=== PATIENT | female | born 1935 | race Caucasian/White ===

== ENCOUNTER → 2017-06-24 | Outpatient (CLI) | payer MEDICARE ==
[~2017-06-24] MED LIST: ALPR.25; ALPR.25 PO; AMLO10 PO; AMLO5 PO; ANORO ELLIPTA1 EACH INH; ASPI81CH; ASPI81CH PO; ASPI81EC PO; ATELVIA PO; ATEN50 PO; Acyclovir800 MG PO; CALGLU500; CALPHO600 PO; CHOL10002 PO; CODACE30 PO; ESTR.75; ESTR.75 PO; ESTR2 PO; FERR325; HYDCHL12.5 PO; HYDCOR1TOA TOP; Hydrochloroth12.5 MG PO; IRON; LEVSOD75; LEVSOD75 PO; LIDO5TP TOP; LOSA50 PO; MULVITMINF; MULVITMINF PO; Norco 5-325 Ta1 EACH PO; OLME20; OLME20 PO; OLME40 PO; OMEP10ER PO; OMEP20ER PO; ONDA4ODT MM; POTA10T PO; POTCHL10ER; POTCHL20ER; PREG50 PO; PROM25 PO; Prilosec PO; QUIN325; RANI150 PO; RXDIPATR PO; RXPROM25 PO; SERT25 PO; SIMV10 PO; SIMV20; SIMV20 PO; SPIRIVA PO; TEMA15 PO; TEMA30; TEMA30 PO; TIOT18 IH; [UNRECOGNIZED DRUG - CODE] PO
== END ==
LOC: LAB SHORT 10:16 → LAB EV 10:16
DX: M54.2 Cervicalgia (principal)
CPT/HCPCS: 84481

== ENCOUNTER 2017-07-09 10:41 | Day surgery (SDC) | payer MEDICARE ==
[~2017-07-09] VITALS: Ht 162.6 cm; Wt 61.4 kg
[~2017-07-09 10:41] MED LIST changes: +DUOFER 28 MG TA28 MG PO; +METO25 PO; +Mobic15 MG PO
== END 2017-07-09 22:57 | disposition home or self-care (01) ==
LOC: MHTC 10:41
PROC: B246ZZ4 Ultrasonography of Right and Left Heart, Transesophageal (ICD-10-PCS; principal; 2017-07-09)
DX: Z86.73 Personal history of transient ischemic attack (TIA), and cerebral infarction without residual deficits (principal); Q21.1 Atrial septal defect; I70.0 Atherosclerosis of aorta; I10 Essential (primary) hypertension; Z87.891 Personal history of nicotine dependence; R51 Headache; E03.9 Hypothyroidism, unspecified; G47.33 Obstructive sleep apnea (adult) (pediatric); E78.5 Hyperlipidemia, unspecified; J44.9 Chronic obstructive pulmonary disease, unspecified
CPT/HCPCS: 93312; 93325; 99152; 99153; J7030

== ENCOUNTER → 2017-08-06 | Outpatient (CLI) | payer MEDICARE ==
[2017-08-06 15:17] LABS: BASOPHILS ABSOLUTE AUTO 0.11 K/mm3 (0.00-0.23); BASOPHILS PERCENT AUTO 1 % (0-2); EOSINOPHILS PERCENT AUTO 9 % (0-6); Hemoglobin 12.8 g/dL (11.5-16.0); IMMATURE GRAN ABSOLUTE AUTO 0.04 K/mm3 (0.00-0.10); IMMATURE GRAN PERCENT AUTO 0 % (0-1); LYMPHOCYTES ABSOLUTE AUTO 2.07 K/mm3 (0.84-5.20); LYMPHOCYTES PERCENT AUTO 21 % (21-46); MONOCYTES ABSOLUTE AUTO 0.66 K/mm3 (0.16-1.47); MONOCYTES PERCENT AUTO 7 % (4-13); Mean Corpuscular HGB 30.7 pg (26.0-34.0); Mean Corpuscular HGB Conc 35.6 g/dL (31.5-36.5); Mean Corpuscular Volume 86 fL (80-100); Mean Platelet Volume 9.7 fL (9.1-12.4); NEUTROPHILS ABSOLUTE AUTO 6.18 K/mm3 (1.96-9.15); NEUTROPHILS PERCENT AUTO 62 % (41-73); Platelet Count 284 K/mm3 (150-400); RDW Coefficient Variation 12.8 % (11.7-14.2); Red Blood Cell Count 4.17 M/mm3 (3.80-5.20); White Blood Cell Count 9.96 K/mm3 (4.00-11.30)
[2017-08-06 15:32] LABS: Alanine Aminotransfer (ALT/SGP 26 U/L (12-78); Albumin, Blood 3.4 g/dL (3.4-5.0); Albumin/Globulin Ratio 0.9 (0.8-1.8); Alk Phos 71 U/L (40-126); Anion Gap 8 mmol/L (6-16); Aspartate Aminotrans (AST/SGOT 26 U/L (12-37); Bilirubin, Total 0.5 mg/dL (0.1-1.0); Blood Urea Nitrogen 14 mg/dL (8-24); Bun/Creatinine Ratio 22.6 (12.0-20.0); CO2, Blood 30 mmol/L (21-32); Calcium, Blood 8.8 mg/dL (8.5-10.1); Chloride, Blood 98 mmol/L (98-108); Creatinine, Blood 0.62 mg/dL (0.40-1.00); Globulin, Blood 3.8 g/dL (2.2-4.0); Glomerular Filtration Rate >60 (60-); Glucose, Blood 126 mg/dL (70-99); Potassium, Blood 3.5 mmol/L (3.5-5.5); Sodium, Blood 136 mmol/L (136-145); Total Protein, Blood 7.2 g/dL (6.4-8.2)
[2017-08-06 15:33] LABS: Troponin I <0.017 ng/mL (0.000-0.040)
== END ==
LOC: LAB SHORT 15:13 → LAB EV 15:13
PROVIDERS: Physician Assistant
DX: R07.9 Chest pain, unspecified (principal)
CPT/HCPCS: 80053; 83690; 84484; 85025

== ENCOUNTER → 2017-10-13 | Outpatient (CLI) | payer MEDICARE ==
[~2017-10-13] MED LIST changes: +ATOR20 PO; +Advil200 M1 PO; +CRAMP; +DULO30 PO; +Dairy Relie9000 UNI1 PO; +FAMO20 PO; +Percocet 10-321 EACH PO
[2017-10-13 15:25] LABS: BASOPHILS ABSOLUTE AUTO 0.09 K/mm3 (0.00-0.23); BASOPHILS PERCENT AUTO 1 % (0-2); EOSINOPHILS ABSOLUTE AUTO 0.51 K/mm3 (0.00-0.68); EOSINOPHILS PERCENT AUTO 5 % (0-6); Hematocrit 36.6 % (33.0-51.0); Hemoglobin 13.1 g/dL (11.5-16.0); IMMATURE GRAN ABSOLUTE AUTO 0.06 K/mm3 (0.00-0.10); IMMATURE GRAN PERCENT AUTO 1 % (0-1); LYMPHOCYTES ABSOLUTE AUTO 2.38 K/mm3 (0.84-5.20); LYMPHOCYTES PERCENT AUTO 22 % (21-46); MONOCYTES ABSOLUTE AUTO 0.76 K/mm3 (0.16-1.47); MONOCYTES PERCENT AUTO 7 % (4-13); Mean Corpuscular HGB 30.6 pg (26.0-34.0); Mean Corpuscular HGB Conc 35.8 g/dL (31.5-36.5); Mean Corpuscular Volume 86 fL (80-100); Mean Platelet Volume 9.2 fL (9.1-12.4); NEUTROPHILS ABSOLUTE AUTO 7.25 K/mm3 (1.96-9.15); NEUTROPHILS PERCENT AUTO 66 % (41-73); Platelet Count 356 K/mm3 (150-400); RDW Coefficient Variation 12.5 % (11.7-14.2); RDW Standard Deviation 38.4 fL (35.1-46.3); Red Blood Cell Count 4.28 M/mm3 (3.80-5.20); White Blood Cell Count 11.05 K/mm3 (4.00-11.30)
[2017-10-13 15:38] LABS: Alanine Aminotransfer (ALT/SGP 25 U/L (12-78); Albumin, Blood 3.6 g/dL (3.4-5.0); Albumin/Globulin Ratio 0.9 (0.8-1.8); Alk Phos 77 U/L (40-126); Anion Gap 12 mmol/L (6-16); Aspartate Aminotrans (AST/SGOT 21 U/L (12-37); Bilirubin, Total 0.6 mg/dL (0.1-1.0); Blood Urea Nitrogen 14 mg/dL (8-24); Bun/Creatinine Ratio 15.7 (12.0-20.0); CO2, Blood 26 mmol/L (21-32); Calcium, Blood 9.3 mg/dL (8.5-10.1); Chloride, Blood 93 mmol/L (98-108); Creatinine, Blood 0.89 mg/dL (0.40-1.00); Globulin, Blood 3.8 g/dL (2.2-4.0); Glomerular Filtration Rate >60 (60-); Glucose, Blood 147 mg/dL (70-99); Potassium, Blood 3.4 mmol/L (3.5-5.5); Sodium, Blood 131 mmol/L (136-145); Total Protein, Blood 7.4 g/dL (6.4-8.2)
== END | disposition home or self-care (01) ==
LOC: LAB EV 15:21 → LAB SHORT 15:21
PROVIDERS: Physician Assistant
DX: R19.7 Diarrhea, unspecified (principal)
CPT/HCPCS: 80053; 83690; 85025

== ENCOUNTER → 2017-10-14 | Outpatient (CLI) | payer MEDICARE ==
[2017-10-14 09:44] LABS: Adenovirus F 40/41 Not Detected (NOT DETECT); Astrovirus Not Detected (NOT DETECT); Campylobacter Sp Not Detected (NOT DETECT); Cryptosporidium Not Detected (NOT DETECT); Cyclospora Cayetanensis Not Detected (NOT DETECT); E. Coli O157 Not Detected (NOT DETECT); Entamoeba Histolytica Not Detected (NOT DETECT); Enteroaggregative E. coli-EAEC Not Detected (NOT DETECT); Enteropathogenic E. coli-EPEC Not Detected (NOT DETECT); Enterotoxigenic E. coli-ETEC Not Detected (NOT DETECT); Giardia Lamblia Not Detected (NOT DETECT); Norovirus GI/GII Not Detected (NOT DETECT); Plesiomonas Shigelloides Not Detected (NOT DETECT); Rotavirus A Not Detected (NOT DETECT); Salmonella Sp Not Detected (NOT DETECT); Sapovirus Not Detected (NOT DETECT); Shiga Toxin-prod E. coli-STEC Not Detected (NOT DETECT); Shigella/Enteroin E. coli-EIEC Not Detected (NOT DETECT); Vibrio Cholerae Not Detected (NOT DETECT); Vibrio Sp Not Detected (NOT DETECT); Yersinia Enterocolitica Not Detected (NOT DETECT)
== END | disposition home or self-care (01) ==
LOC: LAB EV 09:41 → LAB SHORT 09:41
PROVIDERS: Physician Assistant
DX: R19.7 Diarrhea, unspecified (principal)
CPT/HCPCS: 87507

== ENCOUNTER 2018-03-13 09:36 | Day surgery (SDC) | payer MEDICARE ==
[~2018-03-13] VITALS: Ht 162.6 cm; Wt 61.4 kg
[~2018-03-13 09:36] MED LIST changes: +ASPI325EC PO; +DESV50 PO; +ESOM20 PO; +FERROUS FUMARAT89 MG PO; +LACTOSE PO; +LIDO700A20 TOP; +LIDOCAINE1 EACH TOP; +LIVALO2 MG PO; +LOSARTAN POTASS50 MG PO; +MELO7.5 PO; +Metoprolol Tart25 MG PO; +VITAMIN D22000 UNIT PO; +Xalatan2.5 ML LEFTEYE
== END 2018-03-13 11:57 | disposition home or self-care (01) ==
LOC: ORSCSDS 09:36
PROVIDERS: Internal Medicine Gastroenterology
PROC: 0DB68ZX Excision of Stomach, Via Natural or Artificial Opening Endoscopic, Diagnostic (ICD-10-PCS; principal; 2018-03-13 11:00)
DX: D50.9 Iron deficiency anemia, unspecified (principal); K26.9 Duodenal ulcer, unspecified as acute or chronic, without hemorrhage or perforation; K22.2 Esophageal obstruction; K92.1 Melena; E03.9 Hypothyroidism, unspecified; I10 Essential (primary) hypertension; Z86.73 Personal history of transient ischemic attack (TIA), and cerebral infarction without residual deficits; F41.9 Anxiety disorder, unspecified; E78.00 Pure hypercholesterolemia, unspecified; G47.33 Obstructive sleep apnea (adult) (pediatric); I25.10 Atherosclerotic heart disease of native coronary artery without angina pectoris; Z87.891 Personal history of nicotine dependence; Z79.82 Long term (current) use of aspirin; Z79.899 Other long term (current) drug therapy
CPT/HCPCS: 88305; 88342; J7120

== ENCOUNTER 2018-04-08 13:49 | Inpatient (IN) | payer MEDICARE ==
[~2018-04-08] VITALS: Ht 162.6 cm; Wt 137.5 kg
[~2018-04-08 13:49] MED LIST changes: -ALBU90OI6 INH; -CEFD300 PO; -FURO40 PO; -LACTASE FAS9000 UNIT PO
--- NOTE | 2018-04-08 14:45 | NUR ---
PT ADMIT DONE, HERE 1445, WALK IN. DENIES PAIN, A/O. SOME WEAKNESS. H/R IRREG, TELE ORDERED. NOT HERE YET. LUNGS CLEAR, RESP EASY UNLABORED. ON 2L 02. SATS >95. TALK WITH DR ALYSSA POLANCO REMOVE O2. SATS >94%. BT X4 LAST BM TODAY. VOIDS TO BATHROOM. 1 ASST, TO SBA. BED IN LOW POSITION,,CA LL LITE IN REACH. CALLS APPROP
[2018-04-08] MEDS ORDERED: ANORO ELLIPTA1 EACH INH (15:18)
[2018-04-08] MEDS ORDERED: DESV50 PO (15:19)
[2018-04-08 15:25] LABS: PCO2 Arterial 27.9 mmHg (35-45); PO2 Arterial 82.7 mmHg (80-100); pH Blood Arterial 7.46 (7.35-7.45)
--- NOTE | 2018-04-08 16:58 | NUR ---
PT ADMIT DONE. TELE PLACED. TEACHING ABOUT I/S. PT TO USE HOURLY. IV ABX STARRTED. NO OTHER CONCERNSAT THIS TIME. BED IN LOW POSITION,,CALL LITE IN REACH, CALLS APPROP
--- NOTE | 2018-04-08 18:22 | NUR ---
TELE MONITOR CALLED. RATE ACTUKALLY A-FIB WITH SOME SINUS BEATS. CALLED DR SHAH. PT NORM ON METOPROLOL 25 BID. NOT SHOWING ON EMAR. ORDERS MADE.
[2018-04-08 21:12] LABS: Bilirubin, Urine Neg (Neg); Blood, Urine Neg (Neg); Glucose Qualitative, Urine 1+ (Neg); Ketones, Urine 1+ (Neg); Leukocyte Esterase, Urine Neg (Neg); Nitrite, Urine Neg (Neg); Protein, Urine 3+ (Neg); Urobilinogen, Urine NORM (Normal)
[2018-04-08 21:18] LABS: Appearance, Urine Clear (Clear); Color, Urine Yellow (P-Yellow)
[2018-04-08 21:21] LABS: Bacteria Few /hpf; Red Blood Cells, Urine Not Seen /hpf (0-2); Squamous Epithelial Cells Mod /hpf (Few); White Blood Cells, Urine 0-2 /hpf (0-5)
[2018-04-08 21:41] LABS: Adenovirus Not Detected (NOT DETECT); Bordetella pertussis Not Detected (NOT DETECT); Chlamydophila pneumoniae Not Detected (NOT DETECT); Coronavirus 229E Not Detected (NOT DETECT); Coronavirus HKU1 Not Detected (NOT DETECT); Coronavirus NL63 Not Detected (NOT DETECT); Coronavirus OC43 Not Detected (NOT DETECT); Human Metapneumovirus Not Detected (NOT DETECT); Human Rhinovirus/Enterovirus Not Detected (NOT DETECT); Influenza A Not Detected (NOT DETECT); Influenza A/2009-H1 Not Detected (NOT DETECT); Influenza A/H1 Not Detected (NOT DETECT); Influenza A/H3 Not Detected (NOT DETECT); Influenza B Not Detected (NOT DETECT); Mycoplasma pneumoniae Not Detected (NOT DETECT); Parainfluenza Virus 1 Not Detected (NOT DETECT); Parainfluenza Virus 2 Not Detected (NOT DETECT); Parainfluenza Virus 3 Not Detected (NOT DETECT); Parainfluenza Virus 4 Not Detected (NOT DETECT); Respiratory Syncytial Virus Detected (NOT DETECT)
--- NOTE | 2018-04-08 21:42 | NUR ---
PT BACK IN NSR @ 2141 PER HADOOP INFRASTRUCTURE ARCHITECT. CURRENTLY RUNNING NORMAL SINUS @ 82 BPM c BBB AND PACs.
--- NOTE | 2018-04-08 23:14 | NUR ---
PT RSV POSITIVE PER RESP PANEL. PLACING IN DROPLET PRECAUTIONS AT THIS TIME.
[2018-04-09 03:54] LABS: PCO2 Arterial 30.4 mmHg (35-45); PO2 Arterial 72.6 mmHg (80-100); pH Blood Arterial 7.46 (7.35-7.45)
[2018-04-09 05:00] LABS: BASOPHILS ABSOLUTE AUTO 0.01 K/mm3 (0.00-0.23); BASOPHILS PERCENT AUTO 0 % (0-2); EOSINOPHILS PERCENT AUTO 0 % (0-6); Hematocrit 24.3 % (33.0-51.0); Hemoglobin 7.7 g/dL (11.5-16.0); IMMATURE GRAN ABSOLUTE AUTO 0.09 K/mm3 (0.00-0.10); IMMATURE GRAN PERCENT AUTO 1 % (0-1); LYMPHOCYTES ABSOLUTE AUTO 0.81 K/mm3 (0.84-5.20); LYMPHOCYTES PERCENT AUTO 6 % (21-46); MONOCYTES ABSOLUTE AUTO 0.37 K/mm3 (0.16-1.47); MONOCYTES PERCENT AUTO 3 % (4-13); Mean Corpuscular HGB 29.4 pg (26.0-34.0); Mean Corpuscular HGB Conc 31.7 g/dL (31.5-36.5); Mean Platelet Volume 10.1 fL (9.1-12.4); NEUTROPHILS ABSOLUTE AUTO 12.71 K/mm3 (1.96-9.15); NEUTROPHILS PERCENT AUTO 91 % (41-73); Platelet Count 275 K/mm3 (150-400); RDW Coefficient Variation 17.6 % (11.7-14.2); RDW Standard Deviation 60.3 fL (35.1-46.3); Red Blood Cell Count 2.62 M/mm3 (3.80-5.20); White Blood Cell Count 13.99 K/mm3 (4.00-11.30)
[2018-04-09 05:01] LABS: Mean Corpuscular Volume 93 fL (80-100)
[2018-04-09 05:32] LABS: Troponin I <0.015 ng/mL (0.000-0.040)
[2018-04-09 05:44] LABS: Alanine Aminotransfer (ALT/SGP 20 U/L (12-78); Albumin, Blood 2.6 g/dL (3.4-5.0); Albumin/Globulin Ratio 0.8 (0.8-1.8); Alk Phos 80 U/L (50-136); Anion Gap 11 mmol/L (6-16); Aspartate Aminotrans (AST/SGOT 17 U/L (12-37); Bilirubin, Total 0.2 mg/dL (0.1-1.0); Blood Urea Nitrogen 24 mg/dL (8-24); Bun/Creatinine Ratio 24.3 (12.0-20.0); CO2, Blood 22 mmol/L (21-32); Chloride, Blood 95 mmol/L (98-108); Creatinine, Blood 0.99 mg/dL (0.40-1.00); Globulin, Blood 3.3 g/dL (2.2-4.0); Glomerular Filtration Rate 57 (60-); Glucose, Blood 178 mg/dL (70-99); Potassium, Blood 3.9 mmol/L (3.5-5.5); Sodium, Blood 128 mmol/L (136-145); Total Protein, Blood 5.9 g/dL (6.4-8.2)
--- NOTE | 2018-04-09 06:00 | NUR ---
SHIFT SUMMARY: PERFORMED RESP PANEL THIS SHIFT; RSV DETECTED; DROPLET PRECAUTIONS INITIATED. PT TOLERATING ROOM AIR, RESP E/U. CPAP @ NIGHT. PT A&O X 4, INDEPENDENT IN RM. PRN RESTORIL ADMINISTERED FOR INSOMNIA. PT BACK INTO NSR @ 82 BPM c BBB AND PACs PER CARCASS SPLITTER. ACCORDING TO DAYSHIFT RN, PT WAS IN A FIB WHICH IS ABNORMAL. NA+ AT 128 THIS AM, HGB AT 7.7, HCT AT 24.3. PT DENIES SOB, DENIES PAIN. CALL LIGHT APPROP & ABLE TO MAKE NEEDS KNOWN. WILL CONT TO MONITOR AND PROVIDE CARE UNTIL PRESUMED BY ONCOMING RN.
--- NOTE | 2018-04-09 07:50 | NUR ---
PT AWAKE. SITTING UP IN BED. TALKATIVE, JOKING. DENIES PAIN. A/O. NOT IN ROOM AT THIS TIME. H/R IRREG, NO MURMER NOTED. PER TELE AFIB RATE 70'S, BBB. LUNGS ARE CLEAR T/O. RESP EASY, UNLABORED. ON R/A. ABLE TO SPEAK 5-6 WORD SENTENCES WITH EASE. ABD SOFT NON TENDER, BT X4. LAST BM PER PT YEST. VOIDS PER BATHROOM. CONTINENT. SBA. NO OTHER CONCERNS AT THIS TIME. BED IN LOW POSITION, CALL LITE IN REACH, CALLS APROP
[2018-04-09 10:32] LABS: Percent Saturation 13.3 % (15.0-50.0)
--- NOTE | 2018-04-09 11:57 | NUR ---
Patient was lying in bed and alert when I looked in the patient's room. I introduced myself and asked if patient would like a visit from the spiritual care department. Patient affirmed that she would and after putting on the appropriate PPE I entered the room. Patient shared easily about her recent medical history, her family history and her jeffy. Patient showed no signs of spiritual/emotional needs. I listened empathically, reinforced helpful attitudes and practices, explored patient's belief system and provided prayer. Patient responded warmly and expressed gratitude for my visit.
--- NOTE | 2018-04-09 18:07 | NUR ---
pt pleasant today. ed in also quite pleasant. pt requested pain patch to rt shoulder. done. pt independant in room to sba. no other concerns. pt working on i/s hourly. states is coughing less. pending guiac. hat in stool. no other concerna at this time. bed in low position,call lenine lucian, calls approp
--- NOTE | 2018-04-10 04:15 | NUR ---
SHIFT SUMMARY NO ACUTE CHANGES THIS SHIFT. PT HAS DENIED NEEDS T/O SHIFT. TELE IN PLACE WITH AFIB RHYTHM. PT REPORTS ARTHRITIC PAIN IN HER RIGHT SHOULDER BUT DECLINES ANYTHING FOR PAIN. VITALS STABLE. PT ANTICIPAITING DC TODAY. NO ACUTE CHANGES. WILL CONTINUE TO MONITOR AND REPORT TO ONCOMING RN.
[2018-04-10 05:21] LABS: BASOPHILS ABSOLUTE AUTO 0.01 K/mm3 (0.00-0.23); BASOPHILS PERCENT AUTO 0 % (0-2); EOSINOPHILS ABSOLUTE AUTO 0.01 K/mm3 (0.00-0.68); EOSINOPHILS PERCENT AUTO 0 % (0-6); Hematocrit 23.7 % (33.0-51.0); Hemoglobin 7.5 g/dL (11.5-16.0); IMMATURE GRAN PERCENT AUTO 1 % (0-1); LYMPHOCYTES ABSOLUTE AUTO 1.26 K/mm3 (0.84-5.20); LYMPHOCYTES PERCENT AUTO 7 % (21-46); MONOCYTES PERCENT AUTO 8 % (4-13); Mean Corpuscular HGB Conc 31.6 g/dL (31.5-36.5); Mean Corpuscular Volume 92 fL (80-100); Mean Platelet Volume 10.3 fL (9.1-12.4); NEUTROPHILS ABSOLUTE AUTO 14.57 K/mm3 (1.96-9.15); NEUTROPHILS PERCENT AUTO 84 % (41-73); Platelet Count 322 K/mm3 (150-400); RDW Coefficient Variation 18.4 % (11.7-14.2); RDW Standard Deviation 60.9 fL (35.1-46.3); Red Blood Cell Count 2.59 M/mm3 (3.80-5.20); White Blood Cell Count 17.35 K/mm3 (4.00-11.30)
[2018-04-10 05:39] LABS: Creatinine, Blood 0.97 mg/dL (0.40-1.00); Potassium, Blood 4.3 mmol/L (3.5-5.5)
[2018-04-10 13:39] LABS: Stool Occult Blood Guaiac 1 Pos (Neg)
--- NOTE | 2018-04-10 19:28 | NUR ---
SHIFT SUMMARY PT AXO, PLEASANT AND COOPERATIVE WITH CARE. PT RECIEVED 1 UNIT PRBC. IV PATENT, SALINE LOCKED. PT A-FIB WITH BBB FROM 80'S TO 110. PT WAS UP TO 150 PER MOBILE PHONE SALESPERSON AT ABOUT 1830. THEN HR DROPPED BACK DOWN TO 108. GI CONSULTED, SEE NOTE. PT UP AD RIVERA WITH STEADY GAIT. BED IN LOW POSITION, CALL LIGHT WITHIN REACH.
[2018-04-11 05:17] LABS: BASOPHILS ABSOLUTE AUTO 0.03 K/mm3 (0.00-0.23); BASOPHILS PERCENT AUTO 0 % (0-2); EOSINOPHILS ABSOLUTE AUTO 0.02 K/mm3 (0.00-0.68); EOSINOPHILS PERCENT AUTO 0 % (0-6); Hematocrit 31.3 % (33.0-51.0); Hemoglobin 9.9 g/dL (11.5-16.0); IMMATURE GRAN ABSOLUTE AUTO 0.37 K/mm3 (0.00-0.10); IMMATURE GRAN PERCENT AUTO 2 % (0-1); LYMPHOCYTES ABSOLUTE AUTO 1.59 K/mm3 (0.84-5.20); LYMPHOCYTES PERCENT AUTO 8 % (21-46); MONOCYTES PERCENT AUTO 8 % (4-13); Mean Corpuscular HGB 28.3 pg (26.0-34.0); Mean Corpuscular HGB Conc 31.6 g/dL (31.5-36.5); Mean Platelet Volume 10.6 fL (9.1-12.4); NEUTROPHILS ABSOLUTE AUTO 17.66 K/mm3 (1.96-9.15); NEUTROPHILS PERCENT AUTO 83 % (41-73); NRBC ABSOLUTE 0.04 K/mm3 (0.00-0.02); NRBC Auto 0.2 /100 WBC (0.0-0.2); Platelet Count 385 K/mm3 (150-400); RDW Coefficient Variation 18.2 % (11.7-14.2); RDW Standard Deviation 59.2 fL (35.1-46.3); White Blood Cell Count 21.27 K/mm3 (4.00-11.30)
[2018-04-11 05:29] LABS: Mean Corpuscular Volume 89 fL (80-100)
[2018-04-11 06:06] LABS: Anion Gap 10 mmol/L (6-16); Blood Urea Nitrogen 30 mg/dL (8-24); Bun/Creatinine Ratio 34.3 (12.0-20.0); CO2, Blood 24 mmol/L (21-32); Calcium, Blood 8.6 mg/dL (8.5-10.1); Chloride, Blood 94 mmol/L (98-108); Creatinine, Blood 0.87 mg/dL (0.40-1.00); Glomerular Filtration Rate >60 (60-); Glucose, Blood 127 mg/dL (70-99); Potassium, Blood 4.4 mmol/L (3.5-5.5); Sodium, Blood 128 mmol/L (136-145)
--- NOTE | 2018-04-11 06:21 | NUR ---
PT IS A/O x 4, VALDOVIONS, SOB, 1 PA TO BR, 20G L UA, IVABX, ON ISO FOR RSV. PT HAD ONE EPISODE OF PANIC ATTACK EARLY IN THIS SHIFT. MD WAS CALLED TO GET AN ORDER FOR ATIVAN TO HELP HER TO CALM DOWN. PT SLEPT WELL UNTIL ABOUT 0530. THEN SHE AWOKE C/O SOB. PT'S 02 WAS AROUND THE MID 80'S%. HOB ELEVATED, AND PT WAS GUIDED TO BREATHE SLOWLY THRU HER NOSE. THIS CALMED HER FOR ABOUT 30 MIN. THEN SHE STARTED SCREAMING FOR HELP. PT'S 02 SATS WERE IN LOW 80'S AND SHE WAS WORKING VERY HARD TO BREATHE. RT WAS CALLED BUT HE COULD NOT GET THERE IMMEDIATELY. PT WAS MOVED OFF OF HER CPAP MACHINE AND ONTO NC AT 6L - 7L. SHE INTO AFIB W/RVR, AND HER SATS WERE DROPPING TO THE 70'S. THE CHARGE NURSE WAS CONSULTED AND A RAPD WAS CALLED. PT'S 02 WAS ELEVATED TO 10L NC UNTIL A HOUSE CPAP COULD BE BROUGHT TO HER. THE HOSPITALIST WAS CALLED FOR AN ORDER FOR LASIX, AND ATIVAN TO CALM HER DOWN. PT CONTINUES TO BE CYANOTIC AND SOB BUT DOING BETTER NOW.
--- NOTE | 2018-04-11 10:30 | NUR ---
PT SINUS RHYTHM. PT NOTE IN SINUS RHYTHM AT 92 WITH OCCATIONAL PACS PER FILIBERTO COLIN. WILL CONTINUE TO MONITOR.
--- NOTE | 2018-04-11 10:33 | NUR ---
PT ON 3L O3 PT TITRATED DOWN TO 3L O2 VIA OXIMIZER. SATING IN THE MID 90S. WILL CONTINUE TO MONITOR.
--- NOTE | 2018-04-11 15:43 | NUR ---
AFIB & OXYGEN. PT CONVERTED BACK TO AFIB RATE IN THE 100S PER FILIBERTO COLIN. PT ALSO ON 1L O2. PT DESATES TO 87-89 WITHOUT O2. WILL CONTINUE TO MONITOR.
--- NOTE | 2018-04-11 16:59 | NUR ---
SHIFT SUMMARY PT ON 1L O2 VIA NC AT THIS TIME. PT TOLERATED RA WHEN AWAKE, BUT DESATS WHEN FALLING ASLEEP. PT INSTRUCTED ON USING HER INSENTIVE SPIROMETER Q2H. PT ENCOURAGED TO GET OUT OF BED AND INTO CHIAR. PT STATED SHE WAS NOT UP TO THE TASK, BUT STATED SHE WOULD TOMORROW. NO OTHER CHANGES IN ASSESSMENT AT THIS TIME. WILL CONTINUE TO MONITOR UNTIL TURNOVER IS COMPLETE.
--- NOTE | 2018-04-11 19:46 | NUR ---
TELE MONITOR ISRRAEL CALLED TO REPORT PT'S HR WENT UP INTO THE 150'S. PT UP SITTING IN BED VISITING WITH . REPORTED THIS TO TELE MONITOR. MONITOR STATES HR NOW IN THE 120'S.
--- NOTE | 2018-04-12 04:14 | NUR ---
NOC SHIFT SUMMARY PT HAS BEEN PLEASANT AND COOPERATIVE WITH CARE THIS NIGHT. SHE HAS BEEN AAOX4 RESP HAVE BEEN EVEN AND UNLABORED. SHE HAS BEEN COUGHING ON AND OFF. I HAVE NOT SEEN ANY SPUTUM PRODUCED. HER VS HAVE BEEN STABLE WITH THE EXCEPTION OF HER O2 SATS DROPPING INTO THE MID 80'S WHEN SLEEPING. SHE IS WEARING HER CPAP WHEN THIS OCCURS. 1L VIA NC IN HER MOUTH SO SHE CAN CONTINUE CPAP IMPROVES SATS TO MID 90'S. PRESSENTLY APPEARS IN NO ACUTE DISTRESS. WILL CONTINUE TO MONITOR.
[2018-04-12 05:21] LABS: BASOPHILS ABSOLUTE AUTO 0.01 K/mm3 (0.00-0.23); BASOPHILS PERCENT AUTO 0 % (0-2); EOSINOPHILS ABSOLUTE AUTO 0.05 K/mm3 (0.00-0.68); EOSINOPHILS PERCENT AUTO 0 % (0-6); Hematocrit 27.9 % (33.0-51.0); IMMATURE GRAN ABSOLUTE AUTO 0.39 K/mm3 (0.00-0.10); IMMATURE GRAN PERCENT AUTO 3 % (0-1); LYMPHOCYTES ABSOLUTE AUTO 1.46 K/mm3 (0.84-5.20); LYMPHOCYTES PERCENT AUTO 10 % (21-46); MONOCYTES ABSOLUTE AUTO 1.35 K/mm3 (0.16-1.47); MONOCYTES PERCENT AUTO 10 % (4-13); Mean Corpuscular HGB 28.8 pg (26.0-34.0); Mean Corpuscular HGB Conc 32.3 g/dL (31.5-36.5); Mean Corpuscular Volume 89 fL (80-100); Mean Platelet Volume 10.5 fL (9.1-12.4); NEUTROPHILS ABSOLUTE AUTO 10.95 K/mm3 (1.96-9.15); NEUTROPHILS PERCENT AUTO 77 % (41-73); NRBC ABSOLUTE 0.02 K/mm3 (0.00-0.02); NRBC Auto 0.1 /100 WBC (0.0-0.2); Platelet Count 361 K/mm3 (150-400); RDW Coefficient Variation 18.5 % (11.7-14.2); RDW Standard Deviation 60.7 fL (35.1-46.3); Red Blood Cell Count 3.12 M/mm3 (3.80-5.20); White Blood Cell Count 14.21 K/mm3 (4.00-11.30)
[2018-04-12 05:55] LABS: Anion Gap 9 mmol/L (6-16); Blood Urea Nitrogen 23 mg/dL (8-24); Bun/Creatinine Ratio 32.8 (12.0-20.0); CO2, Blood 28 mmol/L (21-32); Calcium, Blood 8.4 mg/dL (8.5-10.1); Chloride, Blood 96 mmol/L (98-108); Glomerular Filtration Rate >60 (60-); Glucose, Blood 114 mg/dL (70-99); Potassium, Blood 3.8 mmol/L (3.5-5.5); Sodium, Blood 133 mmol/L (136-145)
[2018-04-12] MEDS ORDERED: LACTASE FAS9000 UNIT PO (13:44)
[2018-04-12] MEDS ORDERED: ALBU90OI6 INH (13:45)
[2018-04-12] MEDS ORDERED: CEFD300 PO (13:45)
[2018-04-12] MEDS ORDERED: FURO40 PO (13:45)
[2018-04-12] MEDS ORDERED: POTA10T PO (13:46)
--- NOTE | 2018-04-12 15:40 | NUR ---
DISCHARGE SUMMARY PATIENT INFORMATION GIVEN TO THE PATIENT AND TO THE FAMILY. ALL MEDICATIONS SPOKEN THROUGH WITH THE PATIENT. NO ACUTE CONCERNS AT THIS TIME. SHE HAS VERBALIZED UNDERSTANDING OF TEACHINGS AND INFORMATION REGARDING FOLLOW UP. IV REMOVED AND PATIENT HAS BEEN WHEELED OUT.
== END 2018-04-12 15:39 | disposition home or self-care (01) | DRG 291 ==
LOC: MEDS 13:49
PROVIDERS: ADMIT Internal Medicine
PROC: 30233N1 Transfusion of Nonautologous Red Blood Cells into Peripheral Vein, Percutaneous Approach (ICD-10-PCS; principal; 2018-04-09)
DX: I11.0 Hypertensive heart disease with heart failure (principal); J18.1 Lobar pneumonia, unspecified organism; I50.31 Acute diastolic (congestive) heart failure; J96.01 Acute respiratory failure with hypoxia; E87.1 Hypo-osmolality and hyponatremia; D62 Acute posthemorrhagic anemia; J44.1 Chronic obstructive pulmonary disease with (acute) exacerbation; J44.0 Chronic obstructive pulmonary disease with (acute) lower respiratory infection; B97.4 Respiratory syncytial virus as the cause of diseases classified elsewhere; I27.20 Pulmonary hypertension, unspecified; I48.2 Chronic atrial fibrillation; G47.33 Obstructive sleep apnea (adult) (pediatric); R19.5 Other fecal abnormalities; K21.9 Gastro-esophageal reflux disease without esophagitis; E03.9 Hypothyroidism, unspecified; F41.8 Other specified anxiety disorders; Z86.73 Personal history of transient ischemic attack (TIA), and cerebral infarction without residual deficits; I44.7 Left bundle-branch block, unspecified; Z66 Do not resuscitate; D50.9 Iron deficiency anemia, unspecified; Z87.891 Personal history of nicotine dependence; T50.2X5A Adverse effect of carbonic-anhydrase inhibitors, benzothiadiazides and other diuretics, initial encounter; D63.8 Anemia in other chronic diseases classified elsewhere; E78.5 Hyperlipidemia, unspecified; M81.0 Age-related osteoporosis without current pathological fracture
CPT/HCPCS: 36415; 36430; 36600; 71046; 80048; 80053; 81001; 82272; 82607; 82728; 82746; 82803; 83540; 83550; 83880; 84484; 85025; 86850; 86900; 86901; 86923; 87040; 87486; 87581; 87633; 87798; 93005; 93010; 93306; 94640; 94660; 94760; 94761; J0456; J0696; J1650; J1940; J7050; P9016

== ENCOUNTER → 2018-04-08 | Outpatient (CLI) | payer MEDICARE ==
[~2018-04-08] MED LIST changes: +ALBU90OI6 INH; +CEFD300 PO; +FURO40 PO; +LACTASE FAS9000 UNIT PO
[2018-04-08 10:31] LABS: BASOPHILS ABSOLUTE AUTO 0.05 K/mm3 (0.00-0.23); BASOPHILS PERCENT AUTO 0 % (0-2); EOSINOPHILS ABSOLUTE AUTO 0.09 K/mm3 (0.00-0.68); EOSINOPHILS PERCENT AUTO 1 % (0-6); Hematocrit 25.7 % (33.0-51.0); Hemoglobin 8.5 g/dL (11.5-16.0); IMMATURE GRAN PERCENT AUTO 1 % (0-1); LYMPHOCYTES ABSOLUTE AUTO 0.91 K/mm3 (0.84-5.20); LYMPHOCYTES PERCENT AUTO 6 % (21-46); MONOCYTES PERCENT AUTO 7 % (4-13); Mean Corpuscular HGB 29.7 pg (26.0-34.0); Mean Corpuscular HGB Conc 33.1 g/dL (31.5-36.5); Mean Corpuscular Volume 90 fL (80-100); Mean Platelet Volume 10.4 fL (9.1-12.4); NEUTROPHILS ABSOLUTE AUTO 12.78 K/mm3 (1.96-9.15); NEUTROPHILS PERCENT AUTO 86 % (41-73); Platelet Count 331 K/mm3 (150-400); RDW Standard Deviation 59.7 fL (35.1-46.3); Red Blood Cell Count 2.86 M/mm3 (3.80-5.20); White Blood Cell Count 14.93 K/mm3 (4.00-11.30)
[2018-04-08 10:43] LABS: Alanine Aminotransfer (ALT/SGP 19 U/L (12-78); Albumin, Blood 2.9 g/dL (3.4-5.0); Albumin/Globulin Ratio 0.8 (0.8-1.8); Alk Phos 93 U/L (40-126); Anion Gap 11 mmol/L (6-16); Aspartate Aminotrans (AST/SGOT 17 U/L (12-37); Bilirubin, Total 0.4 mg/dL (0.1-1.0); Blood Urea Nitrogen 11 mg/dL (8-24); Bun/Creatinine Ratio 14.7 (12.0-20.0); CO2, Blood 23 mmol/L (21-32); Calcium, Blood 8.1 mg/dL (8.5-10.1); Chloride, Blood 91 mmol/L (98-108); Creatinine, Blood 0.75 mg/dL (0.40-1.00); Globulin, Blood 3.5 g/dL (2.2-4.0); Glomerular Filtration Rate >60 (60-); Glucose, Blood 140 mg/dL (70-99); Sodium, Blood 125 mmol/L (136-145); Total Protein, Blood 6.4 g/dL (6.4-8.2)
== END ==
LOC: LAB SHORT 10:27 → LAB EV 10:27
PROVIDERS: Emergency Medicine
DX: J06.9 Acute upper respiratory infection, unspecified (principal)
CPT/HCPCS: 80053; 85025; 87040

== ENCOUNTER 2019-08-06 00:11 | Inpatient (IN) | payer MEDICARE ==
[~2019-08-06] VITALS: Ht 162.6 cm; Wt 56.5 kg
[~2019-08-06 00:11] MED LIST changes: +ALBU90OI6 INH; +ANORO ELLIPTA1 EAC1 INH; +CEFD300 PO; +FURO40 PO; +LACTASE FAS9000 UNI1 PO; +VITAMIN D-32000 UNIT PO; -VITAMIN D22000 UNIT PO
[2019-08-06 00:26] LABS: BASOPHILS ABSOLUTE AUTO 0.06 K/mm3 (0.00-0.23); BASOPHILS PERCENT AUTO 1 % (0-2); EOSINOPHILS ABSOLUTE AUTO 0.06 K/mm3 (0.00-0.68); EOSINOPHILS PERCENT AUTO 1 % (0-6); Hematocrit 45.9 % (33.0-51.0); Hemoglobin 14.4 g/dL (11.5-16.0); IMMATURE GRAN ABSOLUTE AUTO 0.09 K/mm3 (0.00-0.10); IMMATURE GRAN PERCENT AUTO 1 % (0-1); LYMPHOCYTES ABSOLUTE AUTO 0.71 K/mm3 (0.84-5.20); LYMPHOCYTES PERCENT AUTO 6 % (21-46); MONOCYTES ABSOLUTE AUTO 0.72 K/mm3 (0.16-1.47); MONOCYTES PERCENT AUTO 6 % (4-13); Mean Corpuscular HGB 26.9 pg (26.0-34.0); Mean Corpuscular HGB Conc 31.4 g/dL (31.5-36.5); Mean Corpuscular Volume 86 fL (80-100); Mean Platelet Volume 11.3 fL (9.1-12.4); NEUTROPHILS ABSOLUTE AUTO 10.78 K/mm3 (1.96-9.15); NEUTROPHILS PERCENT AUTO 87 % (41-73); Platelet Count 274 K/mm3 (150-400); RDW Coefficient Variation 15.6 % (11.7-14.2); RDW Standard Deviation 48.2 fL (35.1-46.3); Red Blood Cell Count 5.35 M/mm3 (3.80-5.20); White Blood Cell Count 12.42 K/mm3 (4.00-11.30)
[2019-08-06 00:28] LABS: Base Excess Venous -2.8 mmol/L; Bicarbonate Venous 22.2 mmol/L (24.0-30.0); PCO2 Venous 40.3 mmHg (38-42); PO2 Venous 108 mmHg (38-42); pH Blood Venous 7.36 (7.34-7.37)
[2019-08-06 00:46] LABS: Alanine Aminotransfer (ALT/SGP 28 U/L (12-78); Albumin, Blood 3.6 g/dL (3.4-5.0); Alk Phos 107 U/L (50-136); Anion Gap 9 mmol/L (6-16); Aspartate Aminotrans (AST/SGOT 28 U/L (12-37); Bilirubin, Total 1.3 mg/dL (0.1-1.0); Blood Urea Nitrogen 23 mg/dL (8-24); Bun/Creatinine Ratio 27.7 (12.0-20.0); CO2, Blood 23 mmol/L (21-32); Calcium, Blood 8.6 mg/dL (8.5-10.1); Chloride, Blood 103 mmol/L (98-108); Creatinine, Blood 0.83 mg/dL (0.40-1.00); Globulin, Blood 3.6 g/dL (2.2-4.0); Glomerular Filtration Rate >60 (60-); Glucose, Blood 158 mg/dL (70-99); Potassium, Blood 4.5 mmol/L (3.5-5.5); Sodium, Blood 135 mmol/L (136-145); Total Protein, Blood 7.2 g/dL (6.4-8.2); Troponin I <0.015 ng/mL (0.000-0.040)
--- NOTE | 2019-08-06 02:40 | NUR ---
PATIENT ARRIVED TO ICU VIA GURNEY FROM ED WITH DX OF COPD. PATIENT TRANSFER TO BSC, THEN TO BED AND PLACED ON ICU MONITORS. PATIENT IS PCU STATUS. SOB AND SLIGHTLY DIZZY WITH ACTIVITY. BIPAP PLACED SET 12/6 WITH FIO2 45% AFTER ORAL CARE AND SIP OF WATER. PATIENT VERBALIZED THAT SHE JUST WANTS TO SLEEP. BP TO BE OBTAINED ONLY ON RIGHT ARM.
--- NOTE | 2019-08-06 06:11 | NUR ---
SUMMARY PATIENT SLEEPING WITH BIPAP IN PLACE SET AT 12/6 FIO2 45%. USING CALL LIGHT WITHOUT DIFFICULTY. PATIENT UP TO BSC WITH BIPAP IN PLACE TO VOID. PATIENT APPEARS TO BE LESS SOB THIS MORNING.
[2019-08-06 08:40] LABS: BASOPHILS ABSOLUTE AUTO 0.03 K/mm3 (0.00-0.23); BASOPHILS PERCENT AUTO 0 % (0-2); EOSINOPHILS ABSOLUTE AUTO 0.06 K/mm3 (0.00-0.68); EOSINOPHILS PERCENT AUTO 1 % (0-6); Hematocrit 41.7 % (33.0-51.0); Hemoglobin 13.4 g/dL (11.5-16.0); IMMATURE GRAN ABSOLUTE AUTO 0.02 K/mm3 (0.00-0.10); IMMATURE GRAN PERCENT AUTO 0 % (0-1); LYMPHOCYTES ABSOLUTE AUTO 0.76 K/mm3 (0.84-5.20); LYMPHOCYTES PERCENT AUTO 8 % (21-46); MONOCYTES ABSOLUTE AUTO 0.72 K/mm3 (0.16-1.47); MONOCYTES PERCENT AUTO 8 % (4-13); Mean Corpuscular HGB 27.3 pg (26.0-34.0); Mean Corpuscular HGB Conc 32.1 g/dL (31.5-36.5); Mean Corpuscular Volume 85 fL (80-100); Mean Platelet Volume 11.7 fL (9.1-12.4); NEUTROPHILS ABSOLUTE AUTO 7.56 K/mm3 (1.96-9.15); NEUTROPHILS PERCENT AUTO 83 % (41-73); Platelet Count 217 K/mm3 (150-400); RDW Coefficient Variation 15.5 % (11.7-14.2); RDW Standard Deviation 47.6 fL (35.1-46.3); White Blood Cell Count 9.15 K/mm3 (4.00-11.30)
[2019-08-06 09:16] LABS: Alanine Aminotransfer (ALT/SGP 24 U/L (12-78); Albumin, Blood 3.4 g/dL (3.4-5.0); Albumin/Globulin Ratio 1.1 (0.8-1.8); Alk Phos 94 U/L (50-136); Anion Gap 7 mmol/L (6-16); Aspartate Aminotrans (AST/SGOT 23 U/L (12-37); Bilirubin, Total 1.3 mg/dL (0.1-1.0); Blood Urea Nitrogen 20 mg/dL (8-24); Bun/Creatinine Ratio 23.4 (12.0-20.0); CO2, Blood 27 mmol/L (21-32); CPK Creatine Kinase 42 U/L (26-193); Calcium, Blood 8.5 mg/dL (8.5-10.1); Chloride, Blood 103 mmol/L (98-108); Creatinine, Blood 0.86 mg/dL (0.40-1.00); Globulin, Blood 3.1 g/dL (2.2-4.0); Glomerular Filtration Rate >60 (60-); Glucose, Blood 104 mg/dL (70-99); Potassium, Blood 3.6 mmol/L (3.5-5.5); Sodium, Blood 137 mmol/L (136-145); Total Protein, Blood 6.5 g/dL (6.4-8.2)
--- NOTE | 2019-08-06 09:42 | NUR ---
DISCUSSED PT'S CASE AND PROGRESS WITH DR LONG. AWARE THAT WE ARE AWAITING MED LIST FROM PT'S . PT'S STATES HE WILL BRING THAT INTO HOSPITAL WELL SOME OF PT'S BELONGINGS AND HEARING AIDS. PT REMAINS ON BIPAP AT THIS TIME.
--- NOTE | 2019-08-06 09:47 | NUR ---
ASSUMED CARE PT WAS LYING IN BED ON BIPAP AT 12/6 AND 45%. SHE WAS ALERT AND ORIENTED AND CALM AND COOPERATIVE. SHE HAD NO COMPLAINTS AND ASKED TO BE ASSISTED TO THE COMMODE. NO FURTHER NEEDS OR CONCERNS AT THIS TIME.
--- NOTE | 2019-08-06 10:07 | NUR ---
PT NOSE STARTED BLEEDING ON BIPAP. PT SWITCHED TO 4L NASAL CANNULA FOR BREAK FROM BIPAP.
--- NOTE | 2019-08-06 10:21 | NUR ---
PT NOT TOLERATING NASAL CANNULA WELL WITH SATS 89-91. SWITCHED BACK TO BIPAP.
[2019-08-06] MEDS ORDERED: OMEP20ER PO (10:43)
--- NOTE | 2019-08-06 12:06 | NUR ---
CONTACTED PT'S ABOUT MEDS NEEDED DUE TO UNAVAILABILITY FROM PHARMACY, A[facility] AND [facility]. ALSO AWARE THAT PT'S BELONGINGS MADE IT TO HER ROOM AND HAS BEEN GIVEN AN UPDATE. TAKING BREAK FROM BIPAP FOR LUNCH AT THIS TIME.
[2019-08-06 16:50] LABS: Troponin I 0.027 ng/mL (0.000-0.040)
--- NOTE | 2019-08-06 18:29 | NUR ---
SHIFT SUMMARY PT ADMITTED FOR CHF EXACERBATION AND RESPIRATORY FAILURE. PT HAS BEEN ON BIPAP 12/6 and 45% FIO2 ALL DAY. SHE WAS GIVEN SHORT 2-3 MINUTE BREAKS WHERE SHE WAS PUT ON THE NASAL CANNULA AT 5L 02. PT ONLY TOLERATED THE NASAL CANNUAL FOR A SHORT TIME BEFORE TACHYCARDIA, TACHYPNEA AND 02 DESATURATION OCCURED. PT USED THE BEDSIDE COMMODE TWICE PUTTING OUT 200-300ML EACH TIME. NO FURTHER NEEDS OR CONCERNS AT THIS TIME.
[2019-08-07 03:29] LABS: BASOPHILS ABSOLUTE AUTO 0.06 K/mm3 (0.00-0.23); BASOPHILS PERCENT AUTO 1 % (0-2); EOSINOPHILS PERCENT AUTO 3 % (0-6); Hematocrit 42.5 % (33.0-51.0); Hemoglobin 13.2 g/dL (11.5-16.0); IMMATURE GRAN ABSOLUTE AUTO 0.03 K/mm3 (0.00-0.10); IMMATURE GRAN PERCENT AUTO 0 % (0-1); LYMPHOCYTES ABSOLUTE AUTO 0.85 K/mm3 (0.84-5.20); LYMPHOCYTES PERCENT AUTO 11 % (21-46); MONOCYTES ABSOLUTE AUTO 0.85 K/mm3 (0.16-1.47); MONOCYTES PERCENT AUTO 11 % (4-13); Mean Corpuscular HGB 26.7 pg (26.0-34.0); Mean Corpuscular HGB Conc 31.1 g/dL (31.5-36.5); Mean Corpuscular Volume 86 fL (80-100); Mean Platelet Volume 10.7 fL (9.1-12.4); NEUTROPHILS ABSOLUTE AUTO 5.83 K/mm3 (1.96-9.15); NEUTROPHILS PERCENT AUTO 74 % (41-73); Platelet Count 205 K/mm3 (150-400); RDW Coefficient Variation 15.6 % (11.7-14.2); RDW Standard Deviation 48.4 fL (35.1-46.3); Red Blood Cell Count 4.94 M/mm3 (3.80-5.20); White Blood Cell Count 7.82 K/mm3 (4.00-11.30)
[2019-08-07 03:47] LABS: Anion Gap 5 mmol/L (6-16); Blood Urea Nitrogen 17 mg/dL (8-24); Bun/Creatinine Ratio 22.9 (12.0-20.0); CO2, Blood 30 mmol/L (21-32); Calcium, Blood 8.2 mg/dL (8.5-10.1); Chloride, Blood 105 mmol/L (98-108); Creatinine, Blood 0.74 mg/dL (0.40-1.00); Glomerular Filtration Rate >60 (60-); Glucose, Blood 79 mg/dL (70-99); Potassium, Blood 3.6 mmol/L (3.5-5.5); Sodium, Blood 140 mmol/L (136-145)
--- NOTE | 2019-08-07 04:50 | NUR ---
SHIFT SUMMARY PATIENT HAS SLEPT WELL ON BIPAP SINCE ~ 22:00. NO ACUTE CHANGES OVERNIGHT. ASSESSMENT IS CHARTED. VSS. NO C/O PAIN. WILL CONTINUE TO MONITOR.
--- NOTE | 2019-08-07 08:57 | NUR ---
ASSUMED CARE OF PT THIS MORNING PT WAS FOUND TO BE ON 5L NC OF OXYGEN AND ASLEEP. SPO2 WAS 92-93%. LUNGS SOUNDS WERE SLIGHTLY COARSE IN UPPER LOBES. PT IS ALERT AND ORIENTED, FOLLOWS COMMANDS. MONITOR SHOWS TO BE IN A-FIB W/ BBB AND HR RANGING FROM 100'S-130'S. PT IS ABLE TO TRANSFER WITH 1 PERSON ASSISTED TO BEDSIDE COMMODE, HOWEVER SHE IS DYSPNIC WITH EXTERTION AND HER HR TENDS TO INCREASE WITH ACTIVITY. ONCE RESTING SHE WOULD RECOVER IN A FEW MINUTES.
--- NOTE | 2019-08-07 13:43 | NUR ---
CALLED PT'S AND REQUESTED HE BRING IN PT'S HOME CPAP, PER 'S REQUEST.
--- NOTE | 2019-08-07 14:20 | NUR ---
TRANSFER OF CARE REPORT GIVEN TO ANALIA LEWIS ON MEDICAL FLOOR. PT TRANSFERRED TO ROOM 362 VIA WHEELCHAIR BY KARLEY MOMIN. BELONGINGS GATHERED TRANSFERRED WITH PT.
--- NOTE | 2019-08-07 15:19 | NUR ---
ICU 9 TRANSFER TO 362. PT ARRIVE APPROX 1500. SHE IS A/O X4, PLEASANT AFFECT. SHE STATE BREATHING HAS IMPROVED, NO SOB @ REST. BIOX 93% 6L VIA N/C. LUNGS ARE DECREASED, COARSE w CRACKLES. HR IRREG, AFIB w BBB/TELE @ 104. BLE 2+ EDEMA NOTED. PT & OT IN FOR EVAL, PT ABLE TO SIT UP ON HER OWN, UP IN ROOM w FWW, 1 ASSIST. SHE IS SOB w EXERT HOWEVER BIOX MAINTAINS 93-94% 6L. PT STATE R SHOULDER PAIN/DISCOMFORT, STATE SHE "SLEPT ON IT WRONG", K-PAD PROVIDED.
--- NOTE | 2019-08-08 04:46 | NUR ---
SHIFT SUMMARY NO ACUTE CHANGES TO REPORT THIS SHIFT. PT HAS SLEPT MOST OF THE NIGHT, SHE HAD SOME PROBLEM FALLING ASLEEP AND REQUESTED SOMETHING IN ADDITION TO THE RESTORIL. PT WAS SOMEWHAT ANXIOUS. PROVIDER CALLED, RECEIVED ORDER FO XANAX. PT MEDICATED WITH EFFECT. PT HAS RESTED COMFORTABLY. TOLERATES HER CPAP WITH 6L. VITALS STABLE. BED IN LOWEST POSITION, CALL LIGHT WITHIN REACH. WILL CONTINUE TO MONITOR AND REPORT TO ONCOMING RN.
[2019-08-08 05:38] LABS: BASOPHILS ABSOLUTE AUTO 0.08 K/mm3 (0.00-0.23); BASOPHILS PERCENT AUTO 1 % (0-2); EOSINOPHILS ABSOLUTE AUTO 0.14 K/mm3 (0.00-0.68); EOSINOPHILS PERCENT AUTO 2 % (0-6); Hematocrit 42.8 % (33.0-51.0); Hemoglobin 13.8 g/dL (11.5-16.0); IMMATURE GRAN ABSOLUTE AUTO 0.02 K/mm3 (0.00-0.10); IMMATURE GRAN PERCENT AUTO 0 % (0-1); LYMPHOCYTES ABSOLUTE AUTO 1.18 K/mm3 (0.84-5.20); LYMPHOCYTES PERCENT AUTO 15 % (21-46); MONOCYTES ABSOLUTE AUTO 0.89 K/mm3 (0.16-1.47); MONOCYTES PERCENT AUTO 11 % (4-13); Mean Corpuscular HGB 27.8 pg (26.0-34.0); Mean Corpuscular HGB Conc 32.2 g/dL (31.5-36.5); Mean Corpuscular Volume 86 fL (80-100); Mean Platelet Volume 11.2 fL (9.1-12.4); NEUTROPHILS PERCENT AUTO 72 % (41-73); Platelet Count 205 K/mm3 (150-400); RDW Coefficient Variation 15.7 % (11.7-14.2); RDW Standard Deviation 48.4 fL (35.1-46.3); Red Blood Cell Count 4.97 M/mm3 (3.80-5.20); White Blood Cell Count 8.11 K/mm3 (4.00-11.30)
[2019-08-08 05:59] LABS: Anion Gap 6 mmol/L (6-16); Blood Urea Nitrogen 17 mg/dL (8-24); Bun/Creatinine Ratio 24.5 (12.0-20.0); CO2, Blood 28 mmol/L (21-32); Calcium, Blood 8.2 mg/dL (8.5-10.1); Chloride, Blood 103 mmol/L (98-108); Creatinine, Blood 0.69 mg/dL (0.40-1.00); Glomerular Filtration Rate >60 (60-); Glucose, Blood 78 mg/dL (70-99); Potassium, Blood 3.4 mmol/L (3.5-5.5); Sodium, Blood 137 mmol/L (136-145)
[2019-08-08] MEDS ORDERED: XARELTO15 MG PO (14:16)
--- NOTE | 2019-08-08 14:29 | NUR ---
PATIENT GIVEN DISCHARGE INSTRUCTIONS AND EDUCATIONAL MATERIAL. ALL QUESTIONS ANSWERED. IV AND TELE REMOVED. PATIENT IS READY FOR DISCHARGE. IS DOWN AT ER TENT WAITING FOR PATIENT. PATIENT DISCHARGING, BEING ESCORTED OUT BY HISTOLOGY TECHNOLOGIST IN WHEEL CHAIR WITH O2. DISCHARGE AT 1423.
== END 2019-08-08 14:41 | disposition home health service (06) | DRG 291 ==
LOC: ER 00:11 → ICUW 01:19 → MEDS 08-07 14:30
PROVIDERS: Emergency Medicine; Family Medicine; ADMIT Internal Medicine
PROC: 5A09357 Assistance with Respiratory Ventilation, Less than 24 Consecutive Hours, Continuous Positive Airway Pressure (ICD-10-PCS; principal; 2019-08-06)
DX: I11.0 Hypertensive heart disease with heart failure (principal); J96.21 Acute and chronic respiratory failure with hypoxia; J12.1 Respiratory syncytial virus pneumonia; J44.1 Chronic obstructive pulmonary disease with (acute) exacerbation; I48.20 Chronic atrial fibrillation, unspecified; E87.1 Hypo-osmolality and hyponatremia; I50.33 Acute on chronic diastolic (congestive) heart failure; I27.20 Pulmonary hypertension, unspecified; I08.1 Rheumatic disorders of both mitral and tricuspid valves; E03.9 Hypothyroidism, unspecified; F41.9 Anxiety disorder, unspecified; F32.9 Major depressive disorder, single episode, unspecified; K21.9 Gastro-esophageal reflux disease without esophagitis; E78.5 Hyperlipidemia, unspecified; M19.90 Unspecified osteoarthritis, unspecified site; I44.7 Left bundle-branch block, unspecified; G47.33 Obstructive sleep apnea (adult) (pediatric); Z66 Do not resuscitate; F17.210 Nicotine dependence, cigarettes, uncomplicated; Z99.81 Dependence on supplemental oxygen; Z88.1 Allergy status to other antibiotic agents; Z88.0 Allergy status to penicillin; Z88.2 Allergy status to sulfonamides; Z88.8 Allergy status to other drugs, medicaments and biological substances
CPT/HCPCS: 36415; 71045; 80048; 80053; 82550; 82803; 83880; 84484; 85025; 93005; 93010; 94640; 94660; 94762; 96374; 97162; 97165; 97530; 97535; 99285-25; A9270-GY; J1650; J1940

== ENCOUNTER 2019-08-13 20:58 | Inpatient (IN) | payer MEDICARE ==
[~2019-08-13] VITALS: Ht 162.6 cm; Wt 58.3 kg
[~2019-08-13 20:58] MED LIST changes: -ALBU90OI6 INH; -ANORO ELLIPTA1 EAC1 INH; -FURO40 PO; -Metoprolol Tart25 MG PO; +XARELTO15 MG PO
[2019-08-13 21:31] LABS: BASOPHILS ABSOLUTE AUTO 0.06 K/mm3 (0.00-0.23); BASOPHILS PERCENT AUTO 1 % (0-2); EOSINOPHILS PERCENT AUTO 1 % (0-6); Hematocrit 48.7 % (33.0-51.0); Hemoglobin 15.3 g/dL (11.5-16.0); IMMATURE GRAN ABSOLUTE AUTO 0.09 K/mm3 (0.00-0.10); IMMATURE GRAN PERCENT AUTO 1 % (0-1); LYMPHOCYTES PERCENT AUTO 7 % (21-46); MONOCYTES ABSOLUTE AUTO 0.93 K/mm3 (0.16-1.47); MONOCYTES PERCENT AUTO 7 % (4-13); Mean Corpuscular HGB 26.9 pg (26.0-34.0); Mean Corpuscular HGB Conc 31.4 g/dL (31.5-36.5); Mean Corpuscular Volume 86 fL (80-100); Mean Platelet Volume 11.3 fL (9.1-12.4); NEUTROPHILS ABSOLUTE AUTO 10.88 K/mm3 (1.96-9.15); NEUTROPHILS PERCENT AUTO 84 % (41-73); Platelet Count 314 K/mm3 (150-400); RDW Coefficient Variation 15.9 % (11.7-14.2); RDW Standard Deviation 49.3 fL (35.1-46.3); Red Blood Cell Count 5.68 M/mm3 (3.80-5.20); White Blood Cell Count 12.96 K/mm3 (4.00-11.30)
[2019-08-13 21:50] LABS: Alanine Aminotransfer (ALT/SGP 25 U/L (12-78); Albumin, Blood 3.6 g/dL (3.4-5.0); Alk Phos 111 U/L (50-136); Anion Gap 8 mmol/L (6-16); Aspartate Aminotrans (AST/SGOT 24 U/L (12-37); Bilirubin, Total 1.5 mg/dL (0.1-1.0); Blood Urea Nitrogen 22 mg/dL (8-24); Bun/Creatinine Ratio 24.3 (12.0-20.0); CO2, Blood 27 mmol/L (21-32); Calcium, Blood 9.1 mg/dL (8.5-10.1); Chloride, Blood 101 mmol/L (98-108); Globulin, Blood 3.7 g/dL (2.2-4.0); Glomerular Filtration Rate >60 (60-); Glucose, Blood 180 mg/dL (70-99); Potassium, Blood 4.1 mmol/L (3.5-5.5); Sodium, Blood 136 mmol/L (136-145); Total Protein, Blood 7.3 g/dL (6.4-8.2); Troponin I <0.015 ng/mL (0.000-0.040)
[2019-08-13] MEDS ORDERED: AMLO5 PO (22:48)
[2019-08-13] MEDS ORDERED: ANORO ELLIPTA1 EAC1 INH (22:48)
[2019-08-13] MEDS ORDERED: ELIQUIS5 M3 PO (22:48)
[2019-08-13] MEDS ORDERED: Xalatan2.5 ML LEFTEYE (22:49)
[2019-08-13] MEDS ORDERED: METO25ER PO (22:50)
[2019-08-13] MEDS ORDERED: OMEP20ER PO (22:51)
[2019-08-13] MEDS ORDERED: FURO40 PO (22:51)
[2019-08-13] MEDS ORDERED: POTA10T PO (22:51)
[2019-08-13] MEDS ORDERED: DESV50 PO (22:52)
[2019-08-13] MEDS ORDERED: ESTR2 PO (22:52)
[2019-08-13] MEDS ORDERED: TEMA15 PO (22:52)
[2019-08-13] MEDS ORDERED: LEVSOD75 PO (22:53)
[2019-08-13] MEDS ORDERED: ALBU90OI6 INH (22:53)
--- NOTE | 2019-08-14 04:05 | NUR ---
SHIFT SUMMARY: PATIENT ARRIVED TO [facility] AT APPROX 0020 VIA GURNEY FROM ER, PATIENTS BREATHING IS LABORED AND DUE TO A PREVIOUS NOSE BLEED, THE NASAL CANNULA IS IN HER MOUTH. PATIENT IS ALERT AND ORIENTED X4 BUT STATES SHE FEELS ANXIOUS, SHE IS ASKING REPEATEDLY FOR SLEEP MEDICATION. PATIENTS SKIN IS FRAGILE BUT C/D/I, VSS. PATIENTS ARRIVED WITH CARDIZEM DRIP AT 10MG/HR BY MID SHIFT DRIP WAS TURNED OFF AND PATIENT HAS MAINTAINED UP TO THIS TIME WITH A HEART RATE AVERAGING IN THE 70'S. PATIENT PLACED IN ATTENDS SHE WAS GIVEN LASIX PER MD ORDER. NO NOSE BLEED THIS SHIFT, ADMISSION COMPLETED. BED LOW AND LOCKED, CALL LIGHT WITHIN REACH, CPAP IN PLACE.
[2019-08-14 10:27] LABS: BASOPHILS ABSOLUTE AUTO 0.06 K/mm3 (0.00-0.23); BASOPHILS PERCENT AUTO 1 % (0-2); EOSINOPHILS ABSOLUTE AUTO 0.08 K/mm3 (0.00-0.68); EOSINOPHILS PERCENT AUTO 1 % (0-6); Hematocrit 40.9 % (33.0-51.0); Hemoglobin 13.1 g/dL (11.5-16.0); IMMATURE GRAN ABSOLUTE AUTO 0.05 K/mm3 (0.00-0.10); IMMATURE GRAN PERCENT AUTO 1 % (0-1); LYMPHOCYTES ABSOLUTE AUTO 0.66 K/mm3 (0.84-5.20); LYMPHOCYTES PERCENT AUTO 7 % (21-46); MONOCYTES ABSOLUTE AUTO 0.69 K/mm3 (0.16-1.47); MONOCYTES PERCENT AUTO 7 % (4-13); Mean Corpuscular HGB 27.5 pg (26.0-34.0); Mean Corpuscular Volume 86 fL (80-100); Mean Platelet Volume 11.1 fL (9.1-12.4); NEUTROPHILS ABSOLUTE AUTO 8.31 K/mm3 (1.96-9.15); NEUTROPHILS PERCENT AUTO 84 % (41-73); Platelet Count 228 K/mm3 (150-400); RDW Coefficient Variation 16.1 % (11.7-14.2); RDW Standard Deviation 49.6 fL (35.1-46.3); Red Blood Cell Count 4.76 M/mm3 (3.80-5.20); White Blood Cell Count 9.85 K/mm3 (4.00-11.30)
[2019-08-14 10:47] LABS: Alanine Aminotransfer (ALT/SGP 22 U/L (12-78); Albumin, Blood 3.2 g/dL (3.4-5.0); Alk Phos 86 U/L (50-136); Anion Gap 7 mmol/L (6-16); Aspartate Aminotrans (AST/SGOT 20 U/L (12-37); Bilirubin, Total 1.3 mg/dL (0.1-1.0); Blood Urea Nitrogen 21 mg/dL (8-24); Bun/Creatinine Ratio 26.3 (12.0-20.0); CO2, Blood 31 mmol/L (21-32); Calcium, Blood 8.6 mg/dL (8.5-10.1); Chloride, Blood 101 mmol/L (98-108); Globulin, Blood 3.1 g/dL (2.2-4.0); Glomerular Filtration Rate >60 (60-); Glucose, Blood 92 mg/dL (70-99); Potassium, Blood 3.5 mmol/L (3.5-5.5); Sodium, Blood 139 mmol/L (136-145); Total Protein, Blood 6.3 g/dL (6.4-8.2)
[2019-08-14 11:14] LABS: Free Thyroxine 1.33 ng/dL (0.70-1.60); Thyroid Stimulating Hormone 4.93 uIU/mL (0.360-4.800)
--- NOTE | 2019-08-14 18:17 | NUR ---
PCU DAYSHIFT SUMMARY PATIENT REMAINED ON BEDREST T/O SHIFT. PATIENT REMAINS ON 3-5 LPM NC IN HER MOUTH T/O SHIFT - CPAP AT TIMES WHEN RESTING (NOSE BLEEDING STARTS WITH CANNULA IN NOSE). PATIENT WEARS OXYGEN AT 3 LPM CONTINUOUSLY AT HOME (MD MIRZA PT PER COPD DIAGNOSIS). PATIENT DENIES PAIN T/O SHIFT. LUNG SOUNDS COARSE T/O - SEVERE DYSPNEA WITH ANY EXCERTION. PATIENT HAS LITTLE NUTRITION TODAY DUE TO DYSPNEA AND LACK OF APPETITE. PATIENT REMAINS IN CONTROLLED AFIB RATE AT THIS TIME 60-80'S. PALLIATIVE CARE, SPIRITUAL CARE, THIS RN AND MD VASQUEZ SPOKE AT LENGTH WITH PATIENT REGARDING PLAN OF CARE AND PATIENTS WISH FOR MORE INFORMATION REGARDING HOSPICE. PATIENT VERBALIZES THAT SHE IS TIRED OF THE SOB AND WISHES TO BE HOME, PATIENT ALSO VERBALIZES THAT SHE WISHES TO STOP GOING TO DOCTOR APPTS AND WISHES TO STAY HOME. THIS RN COMMUNICATED PATIENTS WISHES WITH HER, SPOUSE AND SON, MAKSIM. FAMILY SUPPORTIVE BUT WOULD LIKE FURTHER INFORMAITON FROM MD'S REGARDING MORBIDITIES. WILL CONTINUE TO MONITOR, CALL LIGHT W/I REACH SON AT BEDSIDE, AND REPORT TO NOC SHIFT RN.
--- NOTE | 2019-08-14 18:38 | NUR ---
Initial spiritual care note: Per RN request, I met with spouse, Brooks, outside of room. He appears to understand that Keya is nearing end of life. He was tearful and appropriate. He is awaiting clear answers as to what is going on with his . He will need clear, understandable terms. Brooks responded well to gentle financial services counselor, emotional affirmation, and encouragement. Prayer provided at bedside. Electric Meter Inspector services will remain available.
[2019-08-15 05:42] LABS: BASOPHILS ABSOLUTE AUTO 0.05 K/mm3 (0.00-0.23); BASOPHILS PERCENT AUTO 1 % (0-2); EOSINOPHILS ABSOLUTE AUTO 0.19 K/mm3 (0.00-0.68); EOSINOPHILS PERCENT AUTO 3 % (0-6); Hematocrit 38.5 % (33.0-51.0); IMMATURE GRAN ABSOLUTE AUTO 0.03 K/mm3 (0.00-0.10); IMMATURE GRAN PERCENT AUTO 0 % (0-1); LYMPHOCYTES PERCENT AUTO 12 % (21-46); MONOCYTES ABSOLUTE AUTO 0.77 K/mm3 (0.16-1.47); MONOCYTES PERCENT AUTO 10 % (4-13); Mean Corpuscular HGB 27.3 pg (26.0-34.0); Mean Corpuscular HGB Conc 31.2 g/dL (31.5-36.5); Mean Corpuscular Volume 88 fL (80-100); NEUTROPHILS PERCENT AUTO 74 % (41-73); Platelet Count 215 K/mm3 (150-400); RDW Coefficient Variation 16.3 % (11.7-14.2); RDW Standard Deviation 52.2 fL (35.1-46.3); Red Blood Cell Count 4.39 M/mm3 (3.80-5.20); White Blood Cell Count 7.54 K/mm3 (4.00-11.30)
--- NOTE | 2019-08-15 05:56 | NUR ---
SHIFT SUMMARY PT A&0 X4. VSS. MONITOR SHOWS AFIB, HR 70's. SPO2 > 90% ON 5L NC WHILE AWAKE OR CPAP WHILE SLEEPING. PT SOB W/ MINIMAL ACTIVITY IN BED OR TALKING, REQUIRING RESTING & DEEP BREATHING. PT VERBALIZING WANTING TO DISCHARGE HOME W/ HOSPICE. PT AWAITING FURTHER DISCUSSION W/ CARE PROVIDER, FAMILY, AND SAWDUST MACHINE OPERATOR AGAIN TODAY. PT IN BED RESTING T/O SHIFT. WILL CONTINUE TO MONITOR AND PROVIDE CARE UNTIL REPORT OFF TO DAY SHIFT RN.
[2019-08-15 06:11] LABS: Magnesium, Blood 1.8 mg/dL (1.6-2.4)
[2019-08-15 06:13] LABS: Alanine Aminotransfer (ALT/SGP 19 U/L (12-78); Albumin, Blood 2.9 g/dL (3.4-5.0); Alk Phos 75 U/L (50-136); Anion Gap 6 mmol/L (6-16); Aspartate Aminotrans (AST/SGOT 21 U/L (12-37); Bilirubin, Total 1.1 mg/dL (0.1-1.0); Blood Urea Nitrogen 23 mg/dL (8-24); Bun/Creatinine Ratio 28.7 (12.0-20.0); CO2, Blood 31 mmol/L (21-32); Calcium, Blood 8.4 mg/dL (8.5-10.1); Chloride, Blood 101 mmol/L (98-108); Globulin, Blood 2.9 g/dL (2.2-4.0); Glomerular Filtration Rate >60 (60-); Glucose, Blood 76 mg/dL (70-99); Potassium, Blood 3.7 mmol/L (3.5-5.5); Sodium, Blood 138 mmol/L (136-145); Total Protein, Blood 5.8 g/dL (6.4-8.2)
--- NOTE | 2019-08-15 11:10 | NUR ---
ASSUMED CARE AT 0700, REPORT FROM ANALIA SMILEY. RESTING IN BED SUPINE AT 30 DEGREE INCLINE. A/A/OX4, 5L O2 VIA NC. PLAN OF CARE REVIEWED, DENIES NEEDS AT THIS TIME. WILL CONTINUE TO MONITOR.
--- NOTE | 2019-08-15 14:48 | NUR ---
PLACED ON OXYMIZER AND TITRATED DOWN TO 4L TO ATTEMPT TO DECREASE TO BASELINE HOME O2 USE OF 3L. SATS DOWN TO 88% ON 4L WITH OXYMIZER, INCREASED TO 5L TO MAINTAIN SATS OF 92% AT THIS TIME.
[2019-08-15] MEDS ORDERED: MORP20L PO (14:51)
[2019-08-15] MEDS ORDERED: MELATONIN5 M1 PO (14:54)
== END 2019-08-15 17:37 | disposition home or self-care (01) | DRG 150 ==
LOC: ER 20:58 → PCU 23:49
PROVIDERS: Hospitalist; Physician Assistant; ADMIT Internal Medicine
PROC: 5A09357 Assistance with Respiratory Ventilation, Less than 24 Consecutive Hours, Continuous Positive Airway Pressure (ICD-10-PCS; principal; 2019-08-13)
DX: R04.0 Epistaxis (principal); J96.21 Acute and chronic respiratory failure with hypoxia; R64 Cachexia; I50.32 Chronic diastolic (congestive) heart failure; I11.0 Hypertensive heart disease with heart failure; Z99.81 Dependence on supplemental oxygen; Z51.5 Encounter for palliative care; Z79.82 Long term (current) use of aspirin; E78.5 Hyperlipidemia, unspecified; E03.9 Hypothyroidism, unspecified; K21.9 Gastro-esophageal reflux disease without esophagitis; J44.9 Chronic obstructive pulmonary disease, unspecified; Z87.891 Personal history of nicotine dependence; Z66 Do not resuscitate; Z68.21 Body mass index [BMI] 21.0-21.9, adult; Z79.01 Long term (current) use of anticoagulants; I27.20 Pulmonary hypertension, unspecified; T45.515A Adverse effect of anticoagulants, initial encounter; Y92.9 Unspecified place or not applicable
CPT/HCPCS: 36415; 71045; 80053; 83735; 84100; 84439; 84443; 84484; 85025; 93005; 93010; 94640; 94660; 94762; 96374; 96376; 99285-25; A9270-GY; J1940; J2060